=== PATIENT | male | born 1980 | race Caucasian/White ===

== ENCOUNTER → 2021-02-06 | Outpatient (CLI) | payer BC ==
--- NOTE | 2021-02-06 11:08 | Diagnostic Imaging Report ---
PROCEDURE: CT urinary tract, rule out kidney stone. TECHNIQUE: Multiple contiguous axial images were obtained through the abdomen and pelvis without the use of intravenous contrast. Auto Exposure Controls were utilized during the CT exam to meet ALARA standards for radiation dose reduction. INDICATION: Right flank pain. COMPARISON: None. FINDINGS: The lung bases are clear. The gallbladder, liver, spleen, pancreas, adrenal glands are grossly normal. Likely benign cortical cyst is seen in the left kidney. However, ultrasound correlation is recommended to exclude solid components. The lesion does not completely appear fluid dense. Otherwise, there is a trace right-sided hydronephrosis secondary to an obstructive 2 mm stone in the proximal right ureter. Additional nonobstructive stones are seen in the bilateral kidneys. Vascular structures, retroperitoneum, bowel and urinary bladder are unremarkable. Slight prostate enlargement. Osseous structures are age-appropriate. IMPRESSION: 1. Likely benign left renal cyst. Nonemergent ultrasound recommended to exclude solid septated components. 2. Trace right-sided hydronephrosis secondary to an obstructive 2 mm stone proximal right ureter. Dictated by: Dictated on workstation # [id number]
== END ==
LOC: RAD FS 10:40
PROVIDERS: ATTEND Family Medicine
DX: N28.1 Cyst of kidney, acquired (principal); N13.30 Unspecified hydronephrosis; N20.1 Calculus of ureter
CPT/HCPCS: 74176

== ENCOUNTER → 2021-02-27 | Outpatient (CLI) | payer BC ==
--- NOTE | 2021-02-27 12:40 | Diagnostic Imaging Report ---
EXAMINATION: Abdomen 1 view HISTORY: KIDNEY STONE COMPARISON: 02/06/2021 FINDINGS: There is a moderate amount of gas and stool throughout the colon. Nonobstructive bowel gas pattern. No radiopaque foreign body. A right ureteral stent is present. No visualized radiopaque renal calculi are seen. The osseous structures are intact. IMPRESSION: No visualized radiopaque stone. Right-sided ureteral stent. Dictated by: Dictated on workstation # [id number]
== END ==
LOC: RAD FS 11:06
PROVIDERS: ATTEND Urology
DX: N20.0 Calculus of kidney (principal); Z96.0 Presence of urogenital implants
CPT/HCPCS: 74018